=== PATIENT | female | born 1995 | race Caucasian/White ===

== ENCOUNTER → 2020-10-06 | Outpatient (REF) | LOC: LAB 10:48 → EDSTATUS 10:49 | DX: D64.9 Anemia, unspecified (principal) ==

== ENCOUNTER → 2020-12-19 | Outpatient (REF) | LOC: LAB 06:35 | DX: Z00.00 Encounter for general adult medical examination without abnormal findings (principal); D64.9 Anemia, unspecified ==

== ENCOUNTER → 2021-09-08 | Outpatient (REF) | LOC: LAB 13:17 | DX: D64.9 Anemia, unspecified (principal) ==

== ENCOUNTER → 2023-07-19 | Outpatient (CLI) | payer OTHER ==
[2023-07-19 15:23] LABS: BASO # 0.06 K/mm3 (0.02-0.10); EOS # 0.28 K/mm3 (0.04-0.40); EOS % 3.4 % (1.0-5.0); HEMATOCRIT 43.2 % (37.0-47.0); HEMOGLOBIN 14.3 g/dL (12.5-16.0); MEAN CELL VOLUME 88 fl (78-100); MEAN CORPUSCULAR HEMOGLOBIN 29 pg (27-31); MEAN CORPUSCULAR HGB CONC 33 g/dL (33-37); MEAN PLATELET VOLUME 9.4 fl (7.4-10.4); MONO # 0.61 K/mm3 (0.20-0.80); NEU # 5.07 K/mm3 (1.40-6.50); PLATELET COUNT 223 K/mm3 (130-400); RED CELL DISTRIBUTION WIDTH 12.9 % (11.5-14.5); WHITE BLOOD COUNT 8.1 K/mm3 (4.8-10.8)
[2023-07-19 15:40] LABS: ALBUMIN 4.5 g/dL (3.5-5.0)
[2023-07-19 15:41] LABS: CALCIUM 9.6 mg/dL (8.3-10.5)
[2023-07-19 15:42] LABS: TOTAL PROTEIN 7.5 g/dL (6.4-8.3)
[2023-07-19 15:44] LABS: TOTAL BILIRUBIN 0.3 mg/dL (0.2-1.2)
== END ==
LOC: LAB 15:09
PROVIDERS: Physician Assistant
DX: Z13.220 Encounter for screening for lipoid disorders (principal); D64.9 Anemia, unspecified; K90.9 Intestinal malabsorption, unspecified